=== PATIENT | female | born 1955 | race Caucasian/White ===

== ENCOUNTER 2017-10-07 10:31 | Emergency (ER) | payer BC, OTHER ==
[2017-10-07 11:54] LABS: #Basophils 0.1 thou/uL (0.0-0.2); #Eosinphils 0.3 thou/uL (0.0-0.7); #Lymphocytes 1.5 thou/uL (1.20-3.40); #Monocytes 0.5 thou/uL (0.11-0.59); #Neutrophils 3.8 thou/uL (1.40-6.50); %Basophils 1.6 % (0.0-1.0); %Eosinophils 5.1 % (0.0-10.0); %Lymphocytes 24.2 % (21.0-51.0); %Monocytes 7.8 % (0.0-10.0); %Neutrophils 61.3 % (42.0-75.0); Hemoglobin 13.6 g/dL (12.0-16.0); Mean Corpuscular HGB CONC 34.3 g/dL (32.0-36.0); Mean Corpuscular Volume 87.7 fl (81.0-99.0); Mean Platelet Volume 8.8 fL (7.4-10.4); Platelet Count 207 thou/uL (130-400); RBC Distribution Width 12.1 % (11.5-14.5); Red Blood Cell (RBC) Count 4.51 mill/uL (4.20-5.40); White Blood Cell (WBC) Count 6.2 thou/uL (4.8-10.8)
[2017-10-07 12:07] LABS: ALT (SGPT) 28 U/L (8-55); AST (SGOT) 29 U/L (5-34); Albumin 3.8 g/dL (3.4-4.8); Alkaline Phosphatase 97 U/L (40-150); Anion Gap 14 mmol/L (10-20); BUN (Urea Nitrogen) 18 mg/dL (9.8-20.1); Bilirubin, Total 0.6 mg/dL (0.2-1.2); CK (CPK) 483 U/L (29-168); Calc. Creatinine Clearance 0 mL/min (70-130); Calcium 9.8 mg/dL (7.8-10.44); Carbon Dioxide 29 mmol/L (23-31); Chloride 100 mmol/L (98-107); Estimated GFR-MDRD 45; Globulin 2.7 g/dL (2.4-3.5); Glucose 317 mg/dL (80-115); Potassium 4.1 mmol/L (3.5-5.1); Protein, Total 6.5 g/dL (6.0-8.3); Sodium 139 mmol/L (136-145)
[2017-10-07 12:08] LABS: CKMB 1.3 ng/mL (0-6.6); Troponin I Less than 0.010 ng/mL (< 0.028)
--- NOTE | 2017-10-07 12:13 | CT ---
CT BRAIN NONCONTRAST: HISTORY: 62-year-old male with altered mental status and vertigo. FINDINGS: There is no midline shift or any other mass effect. There is no evidence of acute intracranial hemor rhage, large cortical infarct, obstructive hydrocephalus, or extraaxial fluid collection. The calvar ium is intact. IMPRESSION: No acute intracranial findings. hill POS: [facility]
--- NOTE | 2017-10-07 12:21 | RAD ---
BILATERAL RIBS FOUR VIEWS WITH PA CHEST RADIOGRAPH: History: Vertigo. Fall. Comparison: None. FINDINGS: Likely old right sided rib fractures are present. There is an old posterior lateral left 7th rib frac ture. There does appear to be acute anterior left 8th and 9th rib fractures. IMPRESSION: 1. Possibly an acute anterior left 8th and 9th rib fracture. 2. Old bilateral rib fractures. POS: [facility]
[2017-10-07 12:51] LABS: Bilirubin Negative (Negative); Blood, Urine Trace (Negative); Clarity Clear (Clear); Glucose, Urine (Dipstick) 250 mg/dL (Negative); Leukocyte Negative (Negative); Nitrite Negative (Negative); Protein, Urine (Dipstick) Negative (Neg-Trace)
[2017-10-07 13:00] LABS: Bacteria/HPF None Seen HPF (None Seen); RBC/HPF 0-3 HPF (0-3); Squamous Epithelial 0-3 HPF (0-3); WBC/HPF None Seen HPF (0-3)
[2017-10-07] MEDS ORDERED: hydrOXYzine 25 MG TAB ONE (13:04)
== END 2017-10-07 13:54 | disposition short-term general hospital (02) ==
LOC: NAV ERS 10:31
DX: R42 Dizziness and giddiness (principal); E10.9 Type 1 diabetes mellitus without complications; E03.9 Hypothyroidism, unspecified; I10 Essential (primary) hypertension; Z79.899 Other long term (current) drug therapy; Z79.82 Long term (current) use of aspirin
CPT/HCPCS: 36416; 70450; 71111; 80053; 81003; 81015; 82550; 82553; 84484; 85025; 93005

== ENCOUNTER 2021-05-02 20:26 | Emergency (ER) | payer MEDICARE ==
[2021-05-02] MEDS ORDERED: Acetaminophen 500 MG TAB ONE (20:41)
[2021-05-02] MEDS ORDERED: KETAMINE 100 MG/ML (5ML VIAL) ONE (21:30)
== END 2021-05-02 23:05 | disposition home or self-care (01) ==
LOC: NAV ERS 20:26
DX: S52.532A Colles' fracture of left radius, initial encounter for closed fracture (principal); E10.9 Type 1 diabetes mellitus without complications; E03.9 Hypothyroidism, unspecified; I10 Essential (primary) hypertension; M81.0 Age-related osteoporosis without current pathological fracture; Z79.82 Long term (current) use of aspirin; Z79.899 Other long term (current) drug therapy; W18.30XA Fall on same level, unspecified, initial encounter
CPT/HCPCS: 25600; 99152

== ENCOUNTER 2021-09-12 09:14 | Emergency (ER) | payer MEDICARE | END 2021-09-12 10:12 | disposition home or self-care (01) | LOC: NAV ERS 09:14 | DX: H10.89 Other conjunctivitis (principal); I10 Essential (primary) hypertension; E11.9 Type 2 diabetes mellitus without complications; E03.9 Hypothyroidism, unspecified; M81.0 Age-related osteoporosis without current pathological fracture; Z79.82 Long term (current) use of aspirin; Z79.4 Long term (current) use of insulin; Z79.899 Other long term (current) drug therapy | CPT/HCPCS: 99283 ==

== ENCOUNTER 2021-11-30 19:36 | Emergency (ER) | payer MEDICARE ==
[2021-11-30] MEDS ORDERED: HYDROcodone/Acetaminophen 5/325 mg Tablet ONE (20:03)
[2021-11-30] MEDS ORDERED: Ondansetron ODT 4 MG TAB ONE (20:04)
== END 2021-11-30 22:21 | disposition home or self-care (01) ==
LOC: NAV ERS 19:36
DX: S13.9XXA Sprain of joints and ligaments of unspecified parts of neck, initial encounter (principal); S30.0XXA Contusion of lower back and pelvis, initial encounter; I10 Essential (primary) hypertension; E10.9 Type 1 diabetes mellitus without complications; E03.9 Hypothyroidism, unspecified; M81.0 Age-related osteoporosis without current pathological fracture; W09.1XXA Fall from playground swing, initial encounter; Z79.82 Long term (current) use of aspirin; Z79.899 Other long term (current) drug therapy
CPT/HCPCS: 72125; 72131; 72192; Q0162

== ENCOUNTER 2023-01-19 12:55 | Emergency (ER) | payer OTHER, MEDICARE ==
[2023-01-19] MEDS ORDERED: Acetaminophen 500 MG TAB ONE (13:40)
== END 2023-01-19 14:06 | disposition home or self-care (01) ==
LOC: NAV ERS 12:55
DX: S52.571A Other intraarticular fracture of lower end of right radius, initial encounter for closed fracture (principal); S83.8X2A Sprain of other specified parts of left knee, initial encounter; S80.01XA Contusion of right knee, initial encounter; E11.9 Type 2 diabetes mellitus without complications; E03.9 Hypothyroidism, unspecified; I10 Essential (primary) hypertension; Z79.4 Long term (current) use of insulin; Z79.899 Other long term (current) drug therapy; W01.0XXA Fall on same level from slipping, tripping and stumbling without subsequent striking against object, initial encounter
CPT/HCPCS: 29125

== ENCOUNTER 2024-05-25 17:21 | Emergency (ER) | payer MEDICARE | END 2024-05-25 19:15 | disposition home or self-care (01) | LOC: NAV ERS 17:21 | DX: S93.401A Sprain of unspecified ligament of right ankle, initial encounter (principal); E10.9 Type 1 diabetes mellitus without complications; I10 Essential (primary) hypertension; X58.XXXA Exposure to other specified factors, initial encounter | CPT/HCPCS: 99283 ==